=== PATIENT | female | born 1980 | race Caucasian/White ===

== ENCOUNTER 2025-06-17 09:00 | Emergency (ER) | payer BC, MEDICAID ==
[~2025-06-17] VITALS: Ht 167.6 cm; Wt 59.9 kg
[2025-06-17 09:02] VITALS: BP 104/67
[2025-06-17] MEDS ORDERED: TRAZ-182 PO (09:12)
[2025-06-17 09:27] LABS: *CLARITY,URINE CLEAR (CLEAR); *COLOR,URINE YELLOW (YELLOW); *KETONES,URINE 4+ (NEGATIVE); *PROTEIN,URINE 1+ (NEGATIVE); *UROBILINOGEN,URINE 0.2 E.U./dl (NORMAL); LEUKOCYTE ESTERASE ,URINE NEGATIVE (NEGATIVE); NITRITE, URINE NEGATIVE (NEGATIVE); UGLUCOSE NEGATIVE (NEGATIVE)
[2025-06-17] MEDS: IV NORMAL SALINE 1000 ML BAG IV ONE (09:29)
[2025-06-17] MEDS ORDERED: ONDANSETRON 4 MG/2 ML VIAL ONE (09:30)
[2025-06-17 09:32] LABS: *BILIRUBIN,URIN 1+ (NEGATIVE); *BLOOD, URINE TRACE (NEGATIVE)
[2025-06-17 09:33] LABS: PLATELET COUNT (AUTO) 318 K/uL (179-408); RED BLOOD CELL COUNT(AUTO) 4.46 MIL/uL (3.63-4.92); RED CELL DISTRIBUTION WIDTH 14.6 % (12.3-17.7); WHITE BLOOD COUNT (AUTO) 6.3 K/uL (3.8-11.8)
[2025-06-17] MEDS: ONDANSETRON 4 MG/2 ML VIAL IV ONE (09:34)
[2025-06-17] MEDS ORDERED: FAMOTIDINE. 20 MG/2 ML VIAL IV ONE (09:36)
[2025-06-17] MEDS: FAMOTIDINE. 20 MG/2 ML VIAL IV ONE (09:40)
[2025-06-17] MEDS ORDERED: LIDOCAINE VISCUS 2% 15 ML UDC ONE (09:43)
[2025-06-17] MEDS ORDERED: MAG HYDROX/AL HYDROX/SIMETH 30 ML LIQUID UDC ONE (09:43)
[2025-06-17 09:45] LABS: ASPARTATE AMINOTRANSFERASE 18.0 U/L (15-37); CREATININE 0.7 mg/dL (0.6-1.3); SODIUM SERUM 137.0 mmol/L (136-145); TOTAL PROTEIN, SERUM 7.9 g/dL (6.4-8.2); UREA NITROGEN, BLOOD 10.0 mg/dL (7-18)
[2025-06-17] MEDS ORDERED: PANT20TA2 PO (09:45)
[2025-06-17] MEDS ORDERED: ONDA4TAB11 PO (09:45)
[2025-06-17] MEDS: LIDOCAINE VISCUS 2% 15 ML UDC MM ONE (09:46)
[2025-06-17] MEDS: MAG HYDROX/AL HYDROX/SIMETH 30 ML LIQUID UDC PO ONE (09:46)
[2025-06-17 09:47] LABS: SQUAMOUS EPITHELIAL CELL,UR MANY /HPF (NONE SEEN)
[2025-06-17 09:54] LABS: *URINE HCG, QUAL NEGATIVE (NEGATIVE)
[2025-06-17 11:53] VITALS: BP 104/67; O2SAT 98
== END 2025-06-17 11:53 | disposition home or self-care (01) ==
LOC: ER 09:00
DX: R10.9 Unspecified abdominal pain (principal); R11.2 Nausea with vomiting, unspecified; F32.A Depression, unspecified; Z79.899 Other long term (current) drug therapy; Z87.19 Personal history of other diseases of the digestive system; Z88.0 Allergy status to penicillin; Z88.1 Allergy status to other antibiotic agents; Z88.7 Allergy status to serum and vaccine; Z60.2 Problems related to living alone
CPT/HCPCS: 99285; 96374; 76705; 96361; 96375; 80076; 80048; 81001; 84703; 83690; 85025; 87086; 36415; J1308; J2405; J7040; A4606; A4663